=== PATIENT | female | born 1960 | race Caucasian/White ===

== ENCOUNTER → 2017-09-20 | Outpatient (CLI) | payer BC ==
[~2017-09-20] MED LIST: MOTRIN800 MG PO; SEPTRA DS 800 M1 TAB PO; VITAMIN D5000 I2 PO
== END | disposition home or self-care (01) ==
LOC: US 13:26
DX: I65.23 Occlusion and stenosis of bilateral carotid arteries (principal); F01.51 Vascular dementia, unspecified severity, with behavioral disturbance

== ENCOUNTER → 2023-02-10 | Outpatient (CLI) | payer BC | END | disposition home or self-care (01) | LOC: RAD 15:22 → LAB 15:22 | PROVIDERS: ATTEND Chiropractor | DX: M47.817 Spondylosis without myelopathy or radiculopathy, lumbosacral region (principal); M54.50 Low back pain, unspecified ==

== ENCOUNTER → 2024-05-17 | Outpatient (CLI) | payer BC | END | disposition home or self-care (01) | LOC: RAD 00:36 | PROVIDERS: ATTEND Nurse Practitioner Women's Health | DX: Z13.820 Encounter for screening for osteoporosis (principal); Z78.0 Asymptomatic menopausal state ==